=== PATIENT | male | born 1980 | race Caucasian/White ===

== ENCOUNTER 2017-07-16 06:06 | Emergency (ER) | payer SELFPAY ==
[2017-07-16 06:11] VITALS: BP 152/89
[2017-07-16] MEDS ORDERED: PENICILLIN V POTASSIUM 250 MG TABLET PO ONE (06:44)
--- NOTE | 2017-07-16 06:47 | ER Document Report ---
ED General - General Chief Complaint: Abscess Stated Complaint: TOOTHACHE Time Seen by Provider: 07/16/17 06:14 Mode of Arrival: Ambulatory Information source: Patient Notes: 36-year-old male presents with complaints of facial swelling. Patient notes it started swelling a little bit last night worsened today denies any actual dental pain denies any hardness to the swelling. Patient notes he has similar episode last year in the left side which required a tooth to be removed TRAVEL OUTSIDE OF THE [place] IN LAST 30 DAYS: No - HPI Onset: Yesterday Onset/Duration: Persistent, Worse Quality of pain: No pain Severity: Mild Pain Level: Denies Associated symptoms: Other Exacerbated by: Denies Relieved by: Denies Similar symptoms previously: Yes Recently seen / treated by doctor: No - Related Data Allergies/Adverse Reactions: iodine [Iodine] Allergy (Severe, Verified 04/30/14 18:31) Edema seafood Allergy (Uncoded 04/30/14 18:31) Past Medical History - Social History Smoking Status: Current Every Day Smoker Cigarette use (# per day): Yes Chew tobacco use (# tins/day): No Smoking Education Provided: No Frequency of alcohol use: None Drug Abuse: None Family History: Reviewed & Not Pertinent, Hypertension Patient has suicidal ideation: No Patient has homicidal ideation: No Pulmonary Medical History: Reports: Hx Bronchitis Renal/ Medical History: Denies: Hx Peritoneal Dialysis Musculoskeltal Medical History: Reports Hx Muscle Spasm Past Surgical History: Reports: Hx Appendectomy, Hx Oral Surgery - Immunizations Immunizations up to date: Yes Hx Diphtheria, Pertussis, Tetanus Vaccination: Yes Review of Systems - Review of Systems Notes: REVIEW OF SYSTEMS: CONSTITUTIONAL : Denies fever, chills, or sweats. Denies recent illness. EENT: admits ot facial swelling CARDIOVASCULAR: Denies chest pain. Denies palpitations or racing or irregular heart beat. Denies ankle edema. RESPIRATORY: Denies cough, cold, or chest congestion. Denies shortness of breath, difficulty breathing, or wheezing. GASTROINTESTINAL: Denies abdominal pain or distention. Denies nausea, vomiting , or diarrhea. Denies blood in vomitus, stools, or per rectum. Denies black, tarry stools. Denies constipation. GENITOURINARY: Denies difficulty urinating, painful urination, burning, frequency, blood in urine, or discharge. MUSCULOSKELETAL: Denies back or neck pain or stiffness. Denies joint pain or swelling. SKIN: Denies rash, lesions or sores. HEMATOLOGIC : Denies easy bruising or bleeding. LYMPHATIC: Denies swollen, enlarged glands. NEUROLOGICAL: Denies confusion or altered mental status. Denies passing out or loss of consciousness. Denies dizziness or lightheadedness. Denies headache. Denies weakness or paralysis or loss of use of either side. Denies problems with gait or speech. Denies sensory loss, numbness, or tingling. Denies seizures. PSYCHIATRIC: Denies anxiety or stress. Denies depression, suicidal ideation, or homicidal ideation. ALL OTHER SYSTEMS REVIEWED AND NEGATIVE. Dictation was performed using [email or web address] voice recognition software PHYSICAL EXAMINATION: GENERAL: Well-appearing, well-nourished and in no acute distress. HEAD: mild edema of the right upper cheek, no mass EYES: Pupils equal round and reactive to light, extraocular movements intact, sclera anicteric, conjunctiva are normal. ENT: Nares patent, oropharynx clear without exudates. Moist mucous membranes. NECK: Normal range of motion, supple without lymphadenopathy LUNGS: Breath sounds clear to auscultation bilaterally and equal. No wheezes rales or rhonchi. HEART: Regular rate and rhythm without murmurs ABDOMEN: Soft, nontender, nondistended abdomen. No guarding, no rebound. No masses appreciated. Musculoskeletal: Normal range of motion, no pitting or edema. No cyanosis. NEUROLOGICAL: Cranial nerves grossly intact. Normal speech, normal gait. Normal sensory, motor exams PSYCH: Normal mood, normal affect. SKIN: Warm, Dry, normal turgor, no rashes or lesions noted. Physical Exam - Vital signs Vitals: Temp Pulse Resp BP Pulse Ox 97.8 F 84 20 152/89 H 99 07/16/17 06:06 07/16/17 06:06 07/16/17 06:06 07/16/17 06:06 07/16/17 06:06 Course - Re-evaluation Re-evalutation: 07/16/17 06:45 Patient's presentation is most consistent with swelling secondary to a dental abscess, interestingly enough the patient has no actual tenderness upon palpation however will be started on antibiotics and be given dental follow-up for further evaluation care there is no abscess that I can incise and drain at this time After performing a Medical Screening Examination, I estimate there is LOW risk for a DEEP SPACE INFECTION (e.g., HALINA'S ANGINA OR RETROPHARYNGEAL ABSCESS), MENINGITIS, INTRACRANIAL HEMORRHAGE, or AIRWAY COMPROMISE, thus I consider the discharge disposition reasonable. Also, there is no evidence or peritonitis, sepsis, or toxicity. I have reevaluated this patient multiple times and no significant life threatening changes are noted. The patient and I have discussed the diagnosis and risks, and we agree with discharging home with close follow-up with the understanding that symptoms and presentations can change. We also discussed returning to the Emergency Department immediately if new or worsening symptoms occur. We have discussed the symptoms which are most concerning (e.g., changing or worsening pain, trouble swallowing or breathing, neck stiffness or fever) that necessitate immediate return. - Vital Signs Vital signs: Temp Pulse Resp BP Pulse Ox 97.8 F 84 20 152/89 H 99 07/16/17 06:06 07/16/17 06:06 07/16/17 06:06 07/16/17 06:06 07/16/17 06:06 Discharge - Discharge Clinical Impression: Facial swelling Condition: Stable Disposition: HOME, SELF-CARE Instructions: Abscess ([facility]) Additional Instructions: Please follow-up with the dentist in 1 week for further evaluation or return immediately if there is any worsening symptoms or any other concerns Prescriptions: Penicillin V Potassium [Penicillin Vk 250 mg Tablet] 500 mg PO Q6 #80 tablet
== END 2017-07-16 06:59 | disposition home or self-care (01) ==
LOC: ER 06:06
DX: R22.0 Localized swelling, mass and lump, head (principal); Z91.013 Allergy to seafood
CPT/HCPCS: 99282